=== PATIENT | female | born 1990 | race Caucasian/White ===

== ENCOUNTER → 2022-03-21 12:55 | Outpatient (BNVA) | payer MEDICAID, SELFPAY | PROVIDERS: PCP Nurse Practitioner Family; Visit Provider Student in an Organized Health Care Education/Training Program | DX: M45.8 Ankylosing spondylitis sacral and sacrococcygeal region (principal); M65.4 Radial styloid tenosynovitis [de Quervain] | CPT/HCPCS: 99202 ==

== ENCOUNTER 2022-06-16 13:35 | Outpatient (REF) | payer OTHER, SELFPAY ==
--- NOTE | ~2022-06-16 | XR_ITS ---
EXAMINATION: Bilateral knee standing. 3 views each knee. CLINICAL INDICATION: Ankylosing spondylitis are spine with bilateral knee pain. COMPARISON: None. TECHNIQUE: Bilateral knee AP standing. 3 views each knee. FINDINGS: Bilateral AP knee: There is normal symmetry of medial and lateral compartment joint space both knees. No loose bodies or bony erosive changes seen. The soft tissues are normal. Left knee: The tricompartment joint space is preserved. No loose bodies of bony erosive changes seen. No periarticular spurring or joint effusion. Right knee: The tricompartment joint space is preserved. No visible acute fracture, dislocation or subluxation seen. No bony erosive changes. There is a small bone island right proximal tibia. The soft tissues are normal. Unremarkable bilateral AP knee standing. Unremarkable bilateral knee exams.
== END 2022-06-16 13:36 | disposition home or self-care (01) ==
LOC: HO.XRAY 13:35
PROVIDERS: PCP Nurse Practitioner Family; Visit Provider Student in an Organized Health Care Education/Training Program
DX: M45.8 Ankylosing spondylitis sacral and sacrococcygeal region (principal); M65.4 Radial styloid tenosynovitis [de Quervain]; M17.0 Bilateral primary osteoarthritis of knee
CPT/HCPCS: 20610; 73562; 73564; 73565; 99212

== ENCOUNTER → 2022-06-28 15:07 | Outpatient (BNVA) | payer OTHER, SELFPAY | PROVIDERS: PCP Nurse Practitioner Family; Visit Provider Student in an Organized Health Care Education/Training Program | DX: M17.0 Bilateral primary osteoarthritis of knee (principal) | CPT/HCPCS: 20610 ==

== ENCOUNTER 2022-09-14 14:08 | Outpatient (AMB) | payer OTHER, SELFPAY ==
--- NOTE | 2022-09-14 14:10 | A.OFFVIS_ITS ---
Intake Vital Signs 09/14/22 14:11 Height 6 ft Weight 293 lb BMI 39.7 BP 122/74 Blood Pressure Location Rt brachial Position Sitting Respiration 16 Pulse 90 Pulse Source Pulse Oximeter Temp 98.6 F Temp Source Temporal Artery Scan Pulse Oximetry (%) 99 Oxygen Delivery Method Room Air Intake Visit Reasons: Allergies indomethacin Allergy (Intermediate, Verified 09/14/22 14:16) vomiting/ headaches hair dye Allergy (Intermediate, Uncoded 06/28/22 15:16) scalp rash Medication List - Last Reconciled 09/14/22 by Cecil Rosenberg MD adalimumab (Humira(CF) Pen) inject one - 40 mg/0.4 mL pen every 2 weeks subcut albuterol sulfate 90 mcg/actuation (Ventolin HFA) 2 puffs inhalation Q4H clonidine HCl 0.1 mg PO TID diclofenac sodium 1% 2 grams topical QID docusate sodium (Stool Softener) 100 mg PO DAILY duloxetine 120 mg PO DAILY nifedipine ER 60 mg PO DAILY omeprazole 40 mg PO DAILY prazosin mg PO quetiapine 150 mg PO DAILY HPI HPI Comments History of Present Illness Details 32-year-old female with HLA B27 positive ankylosing spondylitis who r kayes for follow-up. Doing fairly well overall but continues to have pain in her right shoulder, worse with movement, the bilateral knee steroid injections helped for about 2 months now she is having recurrent knee pain. She gets intermittent pain in her wrists. Compliant with Humira every other week. 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 Review of Systems Eyes Reports no additional complaints Resp Reports no additional complaints Musc Reports arthralgias and Reports stiffness Physical Exam Vital Signs: Last Vital Signs Temp 98.6 F 09/14/22 14:11 Pulse 90 09/14/22 14:11 Resp 16 09/14/22 14:11 BP 122/74 09/14/22 14:11 Pulse Ox 99 09/14/22 14:11 Oxygen Delivery Method Room Air 09/14/22 14:11 BMI result Body Mass Index 39.7 Const General: cooperative, healthy appearing, comfortable and no acute distress Nutritional Appearance: obese Limitations: no limitations HEENT Head: Yes normocephalic and Yes atraumatic Resp Effort & Inspection: normal respiratory effort and able to speak in complete sentences Extrem Other: Right shoulder pain with range of motion, positive empty can test right shoulder Right lateral wrist tenderness and pain with range of motion Right knee tenderness medially Results Reviewed Results Reviewed: SI joint x-ray 03/2020? Findings:? No fracture of the sacrum or coccyx is evident.? There is sclerotic density along the iliac side of the sacroiliac joints bilaterally.?? Impression sclerotic changes consistent with sacroiliitis X-ray thoracic spine 03/2020? Impression: no significant degenerative change? No acute bone abnormality CT abdomen 02/2020 Impression colitis, infectious versus inflammatory involving the cecum/proximal ascending colon Labs 03/2020? QuantiFERON -ve Assessment & Plan Assessment & Plan (1) Ankylosing spondylitis: Comment: Diagnosed 2011. SI joint x-ray shows findings suggestive of sacroiliitis, with peripheral symptomatology, failed multiple NSAIDs SSZ worked for some time then stopped working Humira started in 2020 dramatic relief switched to Cimzia in 12/2021 due to . Not effective Restarted Humira 04/13 effective Code(s): M45.9 - Ankylosing spondylitis of unspecified sites in spine Qualifiers: Ankylosing spondylitis location: sacrococcygeal region Qualified Code(s): M45.8 - Ankylosing spondylitis sacral and sacrococcygeal region Plan: 32-year-old female with HLA B27 positive spondylitis returns for follow-up. SI joint x-rays with findings suggestive of sacroiliitis. As well as peripheral symptomatology. She also has some bowel complaints, she was never formally diagnosed with an inflammatory bowel disease however she has had a CT abdomen 2020 showing colitis. Humira restarted around 12/2022 with significant improvement in her back pain as well as pain in her hands, improved GI complaints. Today patient is doing fairly well however she continued to have multiple tender joints, continues to have active disease. Humira helped her symptoms for about 10-12 days. Inflammatory markers are elevated. Will advance Humira to 40 mg every week. Follow-up in 4 months (2) Bilateral primary osteoarthritis of knee: Code(s): M17.0 - Bilateral primary osteoarthritis of knee Plan: Both knees were injected about 10 weeks ago. Advised patient that she has to wait at least 3 months for repeat injections. Will schedule a follow-up visit in 1 month for bilateral knee intra-articular injections Plan I spent 28 minutes reviewing patient's chart, evaluating patient, ordering diagnostic workup, counseling patient and documenting in the chart Orders: Orders Comprehensive Met. Panel 4 Months M45.9 - Ankylosing spondylitis of unspecified sites in spine C Reactive Protein 4 Months M45.9 - Ankylosing spondylitis of unspecified sites in spine Complete Blood Count Auto Diff 4 Months M45.9 - Ankylosing spondylitis of unspecified sites in spine Erythrocyte Sedimentation Rate 4 Months M45.9 - Ankylosing spondylitis of unspecified sites in spine Coding Level of Care Code Est Pt Level 4 (27581) Diagnoses Ankylosing spondylitis M45.8 Ankylosing spondylitis location: sacrococcygeal region Bilateral primary osteoarthritis of knee M17.0
[2022-09-14 14:11] VITALS: BP 122/74; PULSE 90; RESP 16; TEMP 37; O2SAT 99; BMI 39.7
== END 2022-09-14 14:49 | disposition home or self-care (01) ==
PROVIDERS: PCP Nurse Practitioner Family; Visit Provider Student in an Organized Health Care Education/Training Program
DX: M45.8 Ankylosing spondylitis sacral and sacrococcygeal region (principal); M17.0 Bilateral primary osteoarthritis of knee
CPT/HCPCS: 99214

== ENCOUNTER → 2022-09-14 14:08 | Outpatient (BNVA) | payer OTHER, SELFPAY | PROVIDERS: PCP Nurse Practitioner Family; Visit Provider Student in an Organized Health Care Education/Training Program ==

== ENCOUNTER 2022-10-12 13:50 | Outpatient (AMB) | payer OTHER, SELFPAY ==
--- NOTE | 2022-10-12 13:54 | A.OFFVIS_ITS ---
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 Allergies indomethacin Allergy (Intermediate, Verified 10/12/22 13:59) vomiting/ headaches hair dye Allergy (Intermediate, Uncoded 10/12/22 13:59) scalp rash Medication List - Last Reconciled 10/12/22 by Cecil Rosenberg MD adalimumab (Humira(CF) Pen) inject one - 40 mg/0.4 mL pen every 1 weeks subcut albuterol sulfate 90 mcg/actuation (Ventolin HFA) 2 puffs inhalation Q4H clonidine HCl 0.1 mg PO TID diclofenac sodium 1% 2 grams topical QID docusate sodium (Stool Softener) 100 mg PO DAILY duloxetine 120 mg PO DAILY nifedipine ER 60 mg PO DAILY omeprazole 40 mg PO DAILY prazosin mg PO quetiapine 150 mg PO DAILY HPI HPI Comments History of Present Illness Details 32-year-old female with HLA B27 positive ankylosing spondylitis returns for follow-up. She started taking the Humira weekly for the last 3-4 weeks. She is here for bilateral knee steroid injections. 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 Review of Systems [facility] Reports arthralgias and Reports stiffness Physical Exam Vital Signs: Last Vital Signs Temp 98.1 F 10/12/22 13:55 Pulse 74 10/12/22 13:55 BP 148/94 H 10/12/22 13:55 Pulse Ox 98 10/12/22 13:55 Oxygen Delivery Method Room Air 10/12/22 13:55 BMI result Body Mass Index 39.2 Const General: cooperative, healthy appearing, comfortable and no acute distress Nutritional Appearance: obese Limitations: no limitations HEENT Head: Yes normocephalic and Yes atraumatic Resp Effort & Inspection: normal respiratory effort and able to speak in complete sentences Office Procedures Joint Injection/Drain Joint Injection/Drain Primary Site: right knee Secondary Site: left knee Prep: site was prepped using sterile technique Injected: 40 mg of, Kenalog and other (2 mL of 1% lidocaine) Approach Used: medial parapatellar Procedure: The patient tolerated the procedure well Coding Details: With the patient's consent the left knee was prepped with ChloraPrep and alcohol. The skin was anesthetized with 2 cc of 1% lidocaine. The knee was then injected with 40 mg of triamcinolone and 1 cc of I % lidocaine. The patient tolerated the procedure with no immediate adverse effects. With the patient's consent the right knee was prepped with ChloraPrep and alcohol. The skin was anesthetized with 2 cc of 1% lidocaine. The knee was then injected with 40 mg of triamcinolone and 1 cc of I % lidocaine. The patient tolerated the procedure with no immediate adverse effects. - Large joint Procedure code (CPT) selection complete Results Reviewed Results Reviewed: SI joint x-ray 03/2020? Findings:? No fracture of the sacrum or coccyx is evident.? There is sclerotic density along the iliac side of the sacroiliac joints bilaterally.?? Impression sclerotic changes consistent with sacroiliitis X-ray thoracic spine 03/2020? Impression: no significant degenerative change? No acute bone abnormality CT abdomen 02/2020 Impression colitis, infectious versus inflammatory involving the cecum/proximal ascending colon Labs 03/2020? QuantiFERON -ve Assessment & Plan Assessment & Plan (1) Ankylosing spondylitis: Comment: Diagnosed 2011. SI joint x-ray shows findings suggestive of sacroiliitis, with peripheral symptomatology, failed multiple NSAIDs SSZ worked for some time then stopped working Humira started in 2020 dramatic relief switched to Cimzia in 12/2021 due to . Not effective Restarted Humira 04/13 partially effective, advanced to weekly 10/11 Code(s): M45.9 - Ankylosing spondylitis of unspecified sites in spine Qualifiers: Ankylosing spondylitis location: sacrococcygeal region Qualified Code(s): M45.8 - Ankylosing spondylitis sacral and sacrococcygeal region Plan: 32-year-old female with HLA B27 positive spondylitis returns for follow-up. . She also has some bowel complaints, she was never formally diagnosed with an inflammatory bowel disease however she has had a CT abdomen 2020 showing colitis. Humira dose was advanced to once weekly last visit. Patient has been on Humira weekly for the last 3-4 weeks. Labs before next visit in 3 months (2) Bilateral primary osteoarthritis of knee: Code(s): M17.0 - Bilateral primary osteoarthritis of knee Plan: With patient's consent Both knees were injected in clinic today.. Injections can be repeated in 3-4 month Plan I spent 25 minutes reviewing patient's chart, evaluating patient, ordering diagnostic workup, counseling patient and documenting in the chart Orders: Orders AMB Joint Injection/Aspiration Today M45.9 - Ankylosing spondylitis of unspecified sites in spine Coding Level of Care Code Est Pt Level 4 (84865) Diagnoses Ankylosing spondylitis M45.8 Ankylosing spondylitis location: sacrococcygeal region Bilateral primary osteoarthritis of knee M17.0 CPT Codes Coding - Large joint: 58429 - Large joint ([id number])
[2022-10-12 13:55] VITALS: BP 148/94; PULSE 74; TEMP 36.7; O2SAT 98; BMI 39.2
== END 2022-10-12 15:07 | disposition home or self-care (01) ==
PROVIDERS: PCP Nurse Practitioner Family; Visit Provider Student in an Organized Health Care Education/Training Program
DX: M45.8 Ankylosing spondylitis sacral and sacrococcygeal region (principal); M17.0 Bilateral primary osteoarthritis of knee
CPT/HCPCS: 20610; 99213

== ENCOUNTER → 2022-10-12 13:50 | Outpatient (BNVA) | payer OTHER, SELFPAY | PROVIDERS: PCP Nurse Practitioner Family; Visit Provider Student in an Organized Health Care Education/Training Program | DX: M17.0 Bilateral primary osteoarthritis of knee (principal); M45.8 Ankylosing spondylitis sacral and sacrococcygeal region | CPT/HCPCS: 20610; J3301 ==

== ENCOUNTER 2023-01-03 11:36 | Outpatient (REF) | payer OTHER, SELFPAY ==
[2023-01-03 13:25] LABS: MANUAL DIFF FLAG NO
[2023-01-03 13:33] LABS: Basophils Absolute Auto 0.1 X10*3/uL (0.0-0.2); Eosinophils Absolute Auto 0.2 X10*3/uL (0.0-0.4); Eosinophils Percent Auto 3.7 % (0-4); Hematocrit 37.9 % (37.0-47.0); Hemoglobin 12.4 g/dl (12.0-16.0); Imm Gran Abs Auto 0.03 X10*3/uL (0.00-0.03); Imm Gran Pct Auto 0.5 % (0.0-0.4); Lymphocytes Percent Auto 33.2 % (20-40); Mean Corpuscular HGB Conc 32.7 g/dl (31.0-35.0); Mean Corpuscular Volume 82.6 fL (80.0-98.0); Mean Platelet Volume 8.4 fL (9.4-12.3); Monocytes Absolute Auto 0.4 X10*3/uL (0.1-1.2); Monocytes Percent Auto 5.9 % (2-11); Neutrophils Absolute Auto 3.3 x10*3/uL (2.0-8.3); Neutrophils Percent Auto 55.7 % (45-73); Platelet Count 344 X10*3/uL (160-400); Red Blood Count 4.59 X10*6/uL (4.20-5.50); Red Cell Distribution Width 14.6 % (11.0-16.0)
[2023-01-03 14:02] LABS: Alanine Aminotransferase 22 U/L (0-31); Albumin Level 3.9 g/dL (3.5-5.0); Alkaline Phosphatase 140 U/L (39-117); Anion Gap 10 (12-20); Aspartate Amino Transferase 18 U/L (5-31); Bilirubin Total 0.2 mg/dL (0.0-1.0); Blood Urea Nitrogen 8 mg/dL (9-16); C Reactive Protein 2.28 mg/dL (< or = 0.50); Calcium 8.9 mg/dL (8.4-10.2); Carbon Dioxide 22 mmol/L (22-29); Chloride 108 mmol/L (96-108); Estimated Glomerular Filt Rate > 60; Glucose Random 112 mg/dL (60-115); Potassium 4.1 mmol/L (3.3-5.1); Sodium 136 mmol/L (135-145); Total Protein 7.3 g/dL (6.5-8.0)
[2023-01-03 14:16] LABS: Erythrocyte Sedimentation Rate 13 MM/HR (0-20)
[2023-01-03 14:29] LABS: TSH reflex Free T4 1.16 uIU/mL (0.32-4.0)
== END 2023-01-03 11:37 | disposition home or self-care (01) ==
LOC: HO.10HDL 11:36
PROVIDERS: Visit Provider Student in an Organized Health Care Education/Training Program
DX: M45.8 Ankylosing spondylitis sacral and sacrococcygeal region (principal); M17.0 Bilateral primary osteoarthritis of knee; M23.91 Unspecified internal derangement of right knee; L65.9 Nonscarring hair loss, unspecified
CPT/HCPCS: 20610; 36415; 80053; 84443; 85025; 85652; 86140; J3301

== ENCOUNTER 2023-01-03 13:21 | Outpatient (AMB) | payer OTHER, SELFPAY ==
[2023-01-03 13:23] VITALS: BP 142/68; PULSE 105; TEMP 35.9; O2SAT 97; BMI 38.8
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
== END 2023-01-03 14:07 | disposition home or self-care (01) ==
PROVIDERS: PCP Nurse Practitioner Family; Visit Provider Student in an Organized Health Care Education/Training Program
DX: M45.8 Ankylosing spondylitis sacral and sacrococcygeal region (principal); M17.0 Bilateral primary osteoarthritis of knee; M23.91 Unspecified internal derangement of right knee
CPT/HCPCS: 20610; 99214

== ENCOUNTER 2023-05-02 13:37 | Outpatient (AMB) | payer OTHER, SELFPAY ==
[2023-05-02 13:46] VITALS: BP 142/80; PULSE 105; O2SAT 97; BMI 39.4
--- NOTE | 2023-05-02 13:46 | A.OFFVIS_ITS ---
Intake Vital Signs 05/02/23 13:46 Height 6 ft Weight 290 lb 5.581 oz BMI 39.4 BP 142/80 H Pulse 105 H Pulse Source Pulse Oximeter Pulse Oximetry (%) 97 Oxygen Delivery Method Room Air Intake Visit Reasons: Intake Note: Patient last seen 01/03/23 presents today for follow up and test results. S/p covid in January, lots of complications since. Lots of knee pain. States she feels as her Humira is not enough Roadside Mechanic Required: No Accompanied by: Self / Same As Patient Allergies indomethacin Allergy (Intermediate, Verified 05/02/23 13:50) vomiting/ headaches hair dye Allergy (Intermediate, Uncoded 05/02/23 13:50) scalp rash Medication List - Last Reconciled 05/02/23 by Cecil Rosenberg MD albuterol sulfate 90 mcg/actuation (Ventolin HFA) 2 puffs inhalation Q4H clonidine HCl 0.1 mg PO TID diclofenac sodium 1% 2 grams topical QID docusate sodium (Stool Softener) 100 mg PO DAILY duloxetine 120 mg PO DAILY Humira(CF) Pen (adalimumab) 40 mg (0.4 mL) subcut QWEEK NS L norgest/e.estradiol-e.estrad 0.15 mg-30 mcg (84)/10 mcg (7) (Simpesse) 1 tab PO DAILY nifedipine ER 60 mg PO DAILY omeprazole 40 mg PO DAILY prazosin mg PO prazosin 2 mg PO BID quetiapine 150 mg PO DAILY HPI HPI Comments History of Present Illness Details 32-year-old female with HLA B27 positive ankylosing spondylitis returns for follow-up. She is on Humira weekly. She states that since she has not been doing well at all. She got COVID around [place] time, Since after she has been having difficulty breathing. She received multiple steroid tapers for asthma exacerbation. She just took the last tablet of dexamethasone today. She had an echocardiogram and she states that it was unremarkable. She was referred to see a horse racer. She has been having ongoing diffuse pains including her elbows, shoulders, knees, back, she continues to feel that her right knee pops out of place. She feels that she has generalized swelling of her body related to steroids. 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 Review of Systems Musc Reports back pain, Reports myalgias, Reports arthralgias, Reports joint swelling and Reports stiffness Physical Exam Vital Signs: Last Vital Signs Pulse 105 H 05/02/23 13:46 BP 142/80 H 05/02/23 13:46 Pulse Ox 97 05/02/23 13:46 Oxygen Delivery Method Room Air 05/02/23 13:46 BMI result Body Mass Index 39.4 Const General: cooperative, healthy appearing, comfortable and no acute distress Nutritional Appearance: obese Limitations: no limitations HEENT Head: Yes normocephalic and Yes atraumatic Resp Effort & Inspection: normal respiratory effort and able to speak in complete sentences Auscultation: clear to auscultation bilaterally Cardio Rate: regular rate Rhythm: regular rhythm GI Inspection: No distended Palpation (GI): Soft to palpation and nontender Extrem Other: There are no swollen joints in both hands and wrists. No tenderness Normal range of motion of elbows and shoulders Positive empty can test on the right. Mild right elbow pain with full extension Cracking of right knee with Suzanne's test Mild bilateral knee warmth Normal nailfold capillaroscopy Negative straight leg raise test bilaterally Negative Jose test bilaterally Results Reviewed Results Reviewed: SI joint x-ray 03/2020? Findings:? No fracture of the sacrum or coccyx is evident.? There is sclerotic density along the iliac side of the sacroiliac joints bilaterally.?? Impression sclerotic changes consistent with sacroiliitis X-ray thoracic spine 03/2020? Impression: no significant degenerative change? No acute bone abnormality CT abdomen 02/2020 Impression colitis, infectious versus inflammatory involving the cecum/proximal ascending colon Labs 03/2020? QuantiFERON -ve Assessment & Plan Assessment & Plan (1) Ankylosing spondylitis: Comment: Diagnosed 2011. SI joint x-ray shows findings suggestive of sacroiliitis, with peripheral symptomatology, failed multiple NSAIDs SSZ worked for some time then stopped working Humira started in 2020 dramatic relief switched to Cimzia in 12/2021 due to . Not effective Restarted Humira 04/13 partially effective, advanced to weekly 10/11 Code(s): M45.9 - Ankylosing spondylitis of unspecified sites in spine Qualifiers: Ankylosing spondylitis location: sacrococcygeal region Qualified Code(s): M45.8 - Ankylosing spondylitis sacral and sacrococcygeal region Plan: 32-year-old female with HLA B27 positive spondylitis returns for follow-up. She also has some bowel complaints, she was never formally diagnosed with an inflammatory bowel disease however she has had a CT abdomen 2020 showing colitis. Patient is on Humira 40 mg every week. Today patient is complaining of multiple joint pain. On exam however she does not have any active synovitis. Her joint pain is likely mechanical in nature. She has been taking repeated courses of steroids for possible asthma exacerbation. She was referred to see a horse racer. According to patient 2D echo was done and was unremarkable. Continue with Humira 40 mg weekly Infectious screening hepatitis panel and T spot -ve 05/2022 Labs before next visit in 3 months (2) Bilateral primary osteoarthritis of knee: Code(s): M17.0 - Bilateral primary osteoarthritis of knee Plan: Gets intra-articular steroid injections periodically, last injection was 12/2022 (3) Internal derangement of knee: Code(s): M23.90 - Unspecified internal derangement of unspecified knee Qualifiers: Laterality: right Qualified Code(s): M23.91 - Unspecified internal derangement of right knee Plan: Right knee MRI was ordered to rule out internal derangement. It has not been scheduled yet. Plan I spent 25 minutes reviewing patient's chart, evaluating patient, ordering diagnostic workup, counseling patient and documenting in the chart Orders: Orders Complete Blood Count Auto Diff 3 Months M45.9 - Ankylosing spondylitis of unspecified sites in spine Comprehensive Met. Panel 3 Months M45.9 - Ankylosing spondylitis of unspecified sites in spine Erythrocyte Sedimentation Rate 3 Months M45.9 - Ankylosing spondylitis of unspecified sites in spine C Reactive Protein 3 Months M45.9 - Ankylosing spondylitis of unspecified sites in spine Coding Level of Care Code Est Pt Level 4 (33324) Diagnoses Ankylosing spondylitis of sacrococcygeal region M45.8 Ankylosing spondylitis location: sacrococcygeal region Bilateral primary osteoarthritis of knee M17.0 Internal derangement of right knee M23.91 Laterality: right
== END 2023-05-02 14:31 | disposition home or self-care (01) ==
LOC: HO.RHE 13:37
PROVIDERS: PCP Nurse Practitioner Family; Referring Provider Nurse Practitioner Family; Visit Provider Student in an Organized Health Care Education/Training Program
DX: M45.8 Ankylosing spondylitis sacral and sacrococcygeal region (principal); M17.0 Bilateral primary osteoarthritis of knee; M23.91 Unspecified internal derangement of right knee
CPT/HCPCS: 99214

== ENCOUNTER → 2023-05-02 13:37 | Outpatient (BNVA) | payer OTHER, SELFPAY | PROVIDERS: PCP Nurse Practitioner Family; Visit Provider Student in an Organized Health Care Education/Training Program ==

== ENCOUNTER 2023-06-05 12:20 | Outpatient (AMB) | payer OTHER, SELFPAY ==
--- NOTE | 2023-06-05 12:31 | MHC.OFFVIS ---
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 Required: No Accompanied by: Child Allergies indomethacin Allergy (Intermediate, Verified 06/05/23 12:45) vomiting/ headaches hair dye Allergy (Intermediate, Uncoded 06/05/23 12:45) scalp rash Medication List - Last Reconciled 06/05/23 by Cecil Rosenberg MD albuterol sulfate 90 mcg/actuation (Ventolin HFA) 2 puffs inhalation Q4H aripiprazole (Abilify) 2 mg PO BEDTIME clonidine HCl 0.1 mg PO TID diclofenac sodium 1% 2 grams topical QID docusate sodium (Stool Softener) 100 mg PO DAILY duloxetine 120 mg PO DAILY Humira(CF) Pen (adalimumab) 40 mg (0.4 mL) subcut QWEEK NS L norgest/e.estradiol-e.estrad 0.15 mg-30 mcg (84)/10 mcg (7) (Simpesse) 1 tab PO DAILY nifedipine ER 60 mg PO DAILY omeprazole 40 mg PO DAILY prazosin mg PO prazosin 2 mg PO BID quetiapine 150 mg PO DAILY HPI HPI Comments History of Present Illness Details 32-year-old female with HLA B27 positive ankylosing spondylitis returns for follow-up. She is on Humira weekly. She is requesting bilateral knee cortisone injection. States that those injections generally help her. Most recent injection was 12/2022. 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 Review of Systems [facility] [place] Reports arthralgias and Reports stiffness Physical Exam Vital Signs: Last Vital Signs Pulse 104 H 06/05/23 12:32 BP 134/82 06/05/23 12:32 Pulse Ox 98 06/05/23 12:32 Oxygen Delivery Method Room Air 06/05/23 12:32 BMI result Body Mass Index 39.5 Const General: cooperative, healthy appearing, comfortable and no acute distress Nutritional Appearance: obese Limitations: no limitations HEENT Head: Yes normocephalic and Yes atraumatic Resp Effort & Inspection: normal respiratory effort and able to speak in complete sentences Auscultation: clear to auscultation bilaterally Cardio Rate: regular rate Rhythm: regular rhythm GI Inspection: No distended Palpation (GI): Soft to palpation and nontender Extrem Other: There are no swollen joints in both hands and wrists. No tenderness Normal range of motion of elbows and shoulders Mild right elbow pain with full extension Cracking of right knee with Suzanen's test Mild bilateral knee warmth Normal nailfold capillaroscopy Negative straight leg raise test bilaterally Negative Jose test bilaterally Office Procedures Joint Injection/Drain Joint Injection/Drain Primary Site: right knee Secondary Site: left knee Prep: site was prepped using sterile technique and ethochloride spray was applied Injected: 40 mg of, Kenalog and other (2 mL of 1% lidocaine) Approach Used: medial parapatellar Procedure: The patient tolerated the procedure well Coding Details: With the patient's consent the right knee was prepped with ChloraPrep and alcohol. The skin was anesthetized with 2 cc of 1% lidocaine. The knee was then injected with 40 mg of triamcinolone and 2 cc of I % lidocaine. Then, the left knee was prepped with ChloraPrep and alcohol. The skin was anesthetized with 2 cc of 1% lidocaine. The knee was then injected with 40 mg of triamcinolone and 2 cc of I % lidocaine. The patient tolerated the procedure with no immediate adverse effects. - Large joint (Large joint x2) Procedure code (CPT) selection complete Results Reviewed Results Reviewed: SI joint x-ray 03/2020? Findings:? No fracture of the sacrum or coccyx is evident.? There is sclerotic density along the iliac side of the sacroiliac joints bilaterally.?? Impression sclerotic changes consistent with sacroiliitis X-ray thoracic spine 03/2020? Impression: no significant degenerative change? No acute bone abnormality CT abdomen 02/2020 Impression colitis, infectious versus inflammatory involving the cecum/proximal ascending colon Labs 03/2020? QuantiFERON -ve Assessment & Plan Assessment & Plan (1) Ankylosing spondylitis: Comment: Diagnosed 2011. SI joint x-ray shows findings suggestive of sacroiliitis, with peripheral symptomatology, failed multiple NSAIDs SSZ worked for some time then stopped working Humira started in 2020 dramatic relief switched to Cimzia in 12/2021 due to . Not effective Restarted Humira 04/13 partially effective, advanced to weekly 10/11 Code(s): M45.9 - Ankylosing spondylitis of unspecified sites in spine Qualifiers: Ankylosing spondylitis location: sacrococcygeal region Qualified Code(s): M45.8 - Ankylosing spondylitis sacral and sacrococcygeal region Plan: 32-year-old female with HLA B27 positive spondylitis returns for follow-up. She also has some bowel complaints, she was never formally diagnosed with an inflammatory bowel disease however she has had a CT abdomen 2020 showing colitis. Doing fairly well on Humira 40 mg weekly. Continue with Humira 40 mg weekly Infectious screening hepatitis panel and T spot -ve 05/2022 Labs before next visit in 2 months (2) Bilateral primary osteoarthritis of knee: Code(s): M17.0 - Bilateral primary osteoarthritis of knee Plan: Gets intra-articular steroid injections periodically, last injection was 12/2022. Today patient is requesting bilateral knee cortisone injections. With patient's consent, both knees were injected with Kenalog today (3) Chondromalacia patellae of right knee: Code(s): M22.41 - Chondromalacia patellae, right knee Plan: Right knee MRI did not show any meniscal or ligament tears. It showed chondromalacia patella. I suggested physiatry or orthopedics referral. Patient was not interested at that time. Plan I spent 25 minutes reviewing patient's chart, evaluating patient, ordering diagnostic workup, counseling patient and documenting in the chart Orders: Orders AMB Joint Injection/Aspiration Today M17.0 - Bilateral primary osteoarthritis of knee Coding Level of Care Code Est Pt Level 4 (08106) Diagnoses Ankylosing spondylitis of sacrococcygeal region M45.8 Ankylosing spondylitis location: sacrococcygeal region Bilateral primary osteoarthritis of knee M17.0 Chondromalacia patellae of right knee M22.41 CPT Codes Coding - 13479 Large joint: 47253 - Large joint ([id number])
[2023-06-05 12:32] VITALS: BP 134/82; PULSE 104; O2SAT 98; BMI 39.5
== END 2023-06-05 13:06 | disposition home or self-care (01) ==
PROVIDERS: PCP Nurse Practitioner Family; Visit Provider Student in an Organized Health Care Education/Training Program
DX: M45.8 Ankylosing spondylitis sacral and sacrococcygeal region (principal); M17.0 Bilateral primary osteoarthritis of knee; M22.41 Chondromalacia patellae, right knee
CPT/HCPCS: 20610; 99214

== ENCOUNTER → 2023-06-05 12:20 | Outpatient (BNVA) | payer OTHER, SELFPAY | PROVIDERS: PCP Nurse Practitioner Family; Visit Provider Student in an Organized Health Care Education/Training Program | DX: M45.8 Ankylosing spondylitis sacral and sacrococcygeal region (principal); M17.0 Bilateral primary osteoarthritis of knee; M22.41 Chondromalacia patellae, right knee; Z79.620 Long term (current) use of immunosuppressive biologic | CPT/HCPCS: 20610; J2003; J3301 ==

== ENCOUNTER 2023-11-30 15:30 | Outpatient (AMB) | payer OTHER, SELFPAY ==
--- NOTE | 2023-11-30 15:33 | MHC.OFFVIS ---
Vital Signs 11/30/23 15:41 Height 6 ft Weight 249 lb 9.012 oz BMI 33.8 BP 122/80 Blood Pressure Location Rt brachial Position Sitting Pulse 81 Pulse Source Pulse Oximeter Pulse Oximetry (%) 98 Oxygen Delivery Method Room Air Intake Visit Reasons: Intake Note: Patient presents for . Allergies indomethacin Allergy (Intermediate, Verified 11/30/23 15:37) vomiting/ headaches hair dye Allergy (Intermediate, Uncoded 06/05/23 12:45) scalp rash Medication List - Last Reconciled 11/30/23 by Cecil Rosenbreg MD albuterol sulfate 90 mcg/actuation (Ventolin HFA) 2 puffs inhalation Q4H aripiprazole (Abilify) 2 mg PO BEDTIME clonidine HCl 0.1 mg PO TID diclofenac sodium 1% 2 grams topical QID docusate sodium (Stool Softener) 100 mg PO DAILY duloxetine 120 mg PO DAILY Humira(CF) Pen (adalimumab) 40 mg (0.4 mL) subcut QWEEK NS L norgest/e.estradiol-e.estrad 0.15 mg-30 mcg (84)/10 mcg (7) (Simpesse) 1 tab PO DAILY nifedipine ER 60 mg PO DAILY omeprazole 40 mg PO DAILY prazosin mg PO prazosin 2 mg PO BID quetiapine 150 mg PO DAILY HPI Comments Details: 33-year-old female with HLA B27 positive ankylosing spondylitis returns for follow-up. She is on Humira weekly. She was last seen in clinic 05/2023. She stated that she missed her appointment. She stated that she had COVID infection followed by pneumonia infection this was in August and September. She also had to go to the emergency room multiple times requiring steroids. She held a few doses of her Humira when she was 7. She lost over 30 lb in this process as she was sick. She states that her knees are getting better now that she has lost some weight but they ache going up and down the stairs. She denies any swelling in her joints. Her main complaint today is bilateral heel pain worse on the right. Worse in the morning. 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 Review of Systems Musc Reports arthralgias and Reports stiffness Physical Exam Vital Signs: Last Vital Signs Pulse 81 11/30/23 15:41 BP 122/80 11/30/23 15:41 Pulse Ox 98 11/30/23 15:41 Oxygen Delivery Method Room Air 11/30/23 15:41 BMI result Body Mass Index 33.8 Const General: cooperative, healthy appearing, comfortable and no acute distress Nutritional Appearance: obese Limitations: no limitations HEENT Head: Yes normocephalic and Yes atraumatic Resp Effort & Inspection: normal respiratory effort and able to speak in complete sentences Auscultation: clear to auscultation bilaterally Cardio Rate: regular rate Rhythm: regular rhythm GI Inspection: No distended Palpation (GI): Soft to palpation and nontender Extrem Other: There are no swollen joints in both hands and wrists. No tenderness Normal range of motion of elbows and shoulders Mild right elbow pain with full extension Bilateral knee crepitus but no warmth or swelling, no pain with full flexion and extension Normal nailfold capillaroscopy Negative straight leg raise test bilaterally Negative Jose test bilaterally Positive heel squeeze test bilaterally Results Reviewed Results Reviewed: SI joint x-ray 03/2020? Findings:? No fracture of the sacrum or coccyx is evident.? There is sclerotic density along the iliac side of the sacroiliac joints bilaterally.?? Impression sclerotic changes consistent with sacroiliitis X-ray thoracic spine 03/2020? Impression: no significant degenerative change? No acute bone abnormality CT abdomen 02/2020 Impression colitis, infectious versus inflammatory involving the cecum/proximal ascending colon Labs 03/2020? QuantiFERON -ve Assessment & Plan Assessment & Plan (1) Ankylosing spondylitis: Comment: Diagnosed 2011. SI joint x-ray shows findings suggestive of sacroiliitis, with peripheral symptomatology, failed multiple NSAIDs SSZ worked for some time then stopped working Humira started in 2020 dramatic relief switched to Cimzia in 12/2021 due to . Not effective Restarted Humira 04/13 partially effective, advanced to weekly 10/11 effective Code(s): M45.9 - Ankylosing spondylitis of unspecified sites in spine Category: Medical Qualifiers: Ankylosing spondylitis location: sacrococcygeal region Qualified Code(s): M45.8 - Ankylosing spondylitis sacral and sacrococcygeal region Plan: 33-year-old female with HLA B27 positive spondylitis returns for follow-up. She also has some bowel complaints, she was never formally diagnosed with an inflammatory bowel disease however she has had a CT abdomen 2020 showing colitis. Doing well on Humira 40 mg weekly. Continue with Humira 40 mg weekly Infectious screening hepatitis panel and T spot -ve 05/2022 Labs before next visit in 4 months (2) Bilateral primary osteoarthritis of knee: Code(s): M17.0 - Bilateral primary osteoarthritis of knee Category: Medical Plan: Gets intra-articular steroid injections periodically, last injection was 05/2023. Patient has lost more than 30 lb over the summer as she was sick with respiratory infections COVID followed by pneumonia. Her knees are doing much better now. (3) Plantar fasciitis, bilateral: Code(s): M72.2 - Plantar fascial fibromatosis Category: Medical Plan: I provided patient with a printout of home exercises. Advised patient that if she does not improve in a few weeks she should follow-up with brown sourer (4) Family history of polycystic kidney: Code(s): Z82.71 - Family history of polycystic kidney Category: Medical Plan: States that her maternal aunt recently and she was found to have polycystic kidney disease. Her mother was also found to have polycystic kidney disease. Advised patient to follow-up with her PCP regarding this Plan I spent 25 minutes reviewing patient's chart, evaluating patient, ordering diagnostic workup, counseling patient and documenting in the chart Orders: Orders Comprehensive Met. Panel 4 Months M45.8 - Ankylosing spondylitis sacral and sacrococcygeal region C Reactive Protein 4 Months M45.8 - Ankylosing spondylitis sacral and sacrococcygeal region Complete Blood Count Auto Diff 4 Months M45.8 - Ankylosing spondylitis sacral and sacrococcygeal region Erythrocyte Sedimentation Rate 4 Months M45.8 - Ankylosing spondylitis sacral and sacrococcygeal region Medications: Refilled Humira(CF) Pen (adalimumab) 40 mg (0.4 mL) subcut QWEEK 4 ea 3RF NS M45.8 - Ankylosing spondylitis sacral and sacrococcygeal region Coding Level of Care Code Est Pt Level 4 (79215) Complex EM visit Add On G2211 Diagnoses Ankylosing spondylitis of sacrococcygeal region M45.8 Ankylosing spondylitis location: sacrococcygeal region Bilateral primary osteoarthritis of knee M17.0 Plantar fasciitis, bilateral M72.2 Family history of polycystic kidney Z82.71
[2023-11-30 15:41] VITALS: BP 122/80; PULSE 81; O2SAT 98; BMI 33.8
== END 2023-11-30 15:35 ==
PROVIDERS: PCP Nurse Practitioner Family; Visit Provider Student in an Organized Health Care Education/Training Program
DX: M45.8 Ankylosing spondylitis sacral and sacrococcygeal region (principal); M17.0 Bilateral primary osteoarthritis of knee; M72.2 Plantar fascial fibromatosis; Z82.71 Family history of polycystic kidney
CPT/HCPCS: 99214; G2211

== ENCOUNTER → 2023-11-30 15:30 | Outpatient (BNVA) | payer OTHER, SELFPAY | PROVIDERS: PCP Nurse Practitioner Family; Visit Provider Student in an Organized Health Care Education/Training Program ==